=== PATIENT | female | born 1995 | race Two or more races ===

== ENCOUNTER 2021-06-08 06:41 | Day surgery (SDC) | payer OTHER ==
[2021-06-08] MEDS ORDERED: MORGIDOX100 MG PO (14:13)
[2021-06-08] MEDS ORDERED: IBU600 MG PO (14:13)
== END 2021-06-08 17:25 | disposition home or self-care (01) ==
LOC: CIR.AMB 06:41
PROVIDERS: ATTEND Obstetrics & Gynecology
DX: O02.1 Missed abortion (principal); Z20.822 Contact with and (suspected) exposure to COVID-19

== ENCOUNTER 2022-08-31 08:59 | Outpatient (CLI) | payer OTHER ==
[~2022-08-31 08:59] MED LIST: IBU600 MG PO; MORGIDOX100 MG PO
== END 2022-08-31 11:00 | disposition home or self-care (01) ==
LOC: PRENATAL 08:59
PROVIDERS: ATTEND Obstetrics & Gynecology Maternal & Fetal Medicine
DX: O35.9XX0 Maternal care for (suspected) fetal abnormality and damage, unspecified, not applicable or unspecified (principal); O35.3XX0 Maternal care for (suspected) damage to fetus from viral disease in mother, not applicable or unspecified; O99.210 Obesity complicating pregnancy, unspecified trimester; Z3A.22 22 weeks gestation of pregnancy

== ENCOUNTER 2022-10-18 11:50 | Outpatient (CLI) | payer OTHER | END 2022-10-18 13:45 | disposition home or self-care (01) | LOC: PRENATAL 11:50 | PROVIDERS: ATTEND Obstetrics & Gynecology Maternal & Fetal Medicine | DX: O26.849 Uterine size-date discrepancy, unspecified trimester (principal); O10.019 Pre-existing essential hypertension complicating pregnancy, unspecified trimester; O99.210 Obesity complicating pregnancy, unspecified trimester; Z3A.28 28 weeks gestation of pregnancy ==

== ENCOUNTER 2022-11-13 10:24 | Outpatient (CLI) | payer OTHER | END 2022-11-13 12:45 | disposition home or self-care (01) | LOC: PRENATAL 10:24 | PROVIDERS: ATTEND Obstetrics & Gynecology Maternal & Fetal Medicine | DX: O26.849 Uterine size-date discrepancy, unspecified trimester (principal); O10.019 Pre-existing essential hypertension complicating pregnancy, unspecified trimester; O99.210 Obesity complicating pregnancy, unspecified trimester; O36.8199 Decreased fetal movements, unspecified trimester, other fetus; Z3A.32 32 weeks gestation of pregnancy ==

== ENCOUNTER 2022-12-10 15:47 | Outpatient (CLI) | payer OTHER ==
[~2022-12-10 15:47] MED LIST changes: +LABETALOL HCL200 MG PO
[2022-12-10] MEDS ORDERED: CHILDREN'S ASPI81 MG PO (18:19)
[2022-12-10] MEDS ORDERED: TRANDATE300 MG PO (18:20)
[2022-12-10] MEDS ORDERED: PRENATAL + DHA1 EAC1 PO (18:21)
== END 2022-12-10 16:59 | disposition home or self-care (01) ==
LOC: PRENATAL 15:47
PROVIDERS: ATTEND Obstetrics & Gynecology Maternal & Fetal Medicine
DX: O26.849 Uterine size-date discrepancy, unspecified trimester (principal); O10.019 Pre-existing essential hypertension complicating pregnancy, unspecified trimester; O99.210 Obesity complicating pregnancy, unspecified trimester; O36.8199 Decreased fetal movements, unspecified trimester, other fetus; Z3A.36 36 weeks gestation of pregnancy

== ENCOUNTER 2022-12-10 17:21 | Inpatient (IN) | payer OTHER ==
[~2022-12-10] VITALS: Ht 162.6 cm; Wt 134.3 kg
[2022-12-10] MEDS ORDERED: CHILDREN'S ASPI81 MG PO (18:19)
[2022-12-10] MEDS ORDERED: TRANDATE300 MG PO (18:20)
[2022-12-10] MEDS ORDERED: PRENATAL + DHA1 EAC1 PO (18:21)
[2022-12-16] MEDS ORDERED: TRANDATE300 MG PO (08:27)
== END 2022-12-16 12:33 | disposition home or self-care (01) | DRG 787 ==
LOC: LDR 17:21 → OB/GYN 17:21 → LDR 12-11 09:19 → OB/GYN 12-11 16:00
PROVIDERS: ADMIT Obstetrics & Gynecology; ATTEND Obstetrics & Gynecology
PROC: 4A1HXCZ Monitoring of Products of Conception, Cardiac Rate, External Approach (ICD-10-PCS; 2022-12-10)
PROC: 3E033VJ Introduction of Other Hormone into Peripheral Vein, Percutaneous Approach (ICD-10-PCS; 2022-12-12)
PROC: 3E0P7VZ Introduction of Hormone into Female Reproductive, Via Natural or Artificial Opening (ICD-10-PCS; 2022-12-13)
PROC: 10D00Z1 Extraction of Products of Conception, Low, Open Approach (ICD-10-PCS; principal; 2022-12-13 17:45)
DX: O61.0 Failed medical induction of labor (principal); O10.92 Unspecified pre-existing hypertension complicating childbirth; O11.4 Pre-existing hypertension with pre-eclampsia, complicating childbirth; Z37.0 Single live birth; Z3A.36 36 weeks gestation of pregnancy; Z20.822 Contact with and (suspected) exposure to COVID-19